=== PATIENT | male | born 1980 | race Caucasian/White ===

== ENCOUNTER → 2016-10-24 | Outpatient (CLI) | payer OTHER | LOC: M OUTALCOH 12:45 | PROVIDERS: ATTEND Psychiatry & Neurology Psychiatry | DX: Z13.9 Encounter for screening, unspecified (principal); F12.20 Cannabis dependence, uncomplicated ==

== ENCOUNTER 2017-12-11 04:27 | Emergency (ER) | payer OTHER ==
[2017-12-11] MEDS: TETRACAINE 0.5% OPHTH SOLN 4ML OS (05:45)
[2017-12-11] MEDS: LISSAMINE GREEN OPHTH 1.5 MG STRIP OS (05:45)
[2017-12-11] MEDS: ERYTHROMYCIN OPHTH OINT OS (06:15)
== END 2017-12-11 06:32 | disposition home or self-care (01) ==
LOC: M ED 04:27
DX: S05.02XA Injury of conjunctiva and corneal abrasion without foreign body, left eye, initial encounter (principal); X58.XXXA Exposure to other specified factors, initial encounter; Y92.89 Other specified places as the place of occurrence of the external cause; Z88.0 Allergy status to penicillin; Z88.8 Allergy status to other drugs, medicaments and biological substances
CPT/HCPCS: 99282

== ENCOUNTER 2018-10-29 07:52 | Emergency (ER) | payer OTHER ==
[~2018-10-29] VITALS: Ht 160 cm; Wt 59.1 kg
[~2018-10-29 07:52] MED LIST: ERYTOIN8 OS
[2018-10-29] MEDS ORDERED: FLUORESCEIN OPHTH 1 MG STRIP OD ONE (08:45)
[2018-10-29] MEDS ORDERED: TETRACAINE 0.5% OPHTH SOLN 4ML OD ONE (08:45)
[2018-10-29] MEDS ORDERED: CYCL1SOL OD (09:10)
[2018-10-29] MEDS ORDERED: CYCLOPENTOLATE 1% OPHTH SOLN 2 ML BTL OD ONE (09:15)
[2018-10-29 09:25] VITALS: BP 118/78
== END 2018-10-29 09:29 | disposition home or self-care (01) ==
LOC: M ED 07:52
DX: H10.211 Acute toxic conjunctivitis, right eye (principal); Z88.0 Allergy status to penicillin; Z88.8 Allergy status to other drugs, medicaments and biological substances; F17.210 Nicotine dependence, cigarettes, uncomplicated